=== PATIENT | male | born 1990 | race Caucasian/White ===

== ENCOUNTER 2018-10-01 17:50 | Emergency (ER) | payer SELFPAY ==
--- NOTE | 2018-10-01 17:56 | ED Physician Documentation ---
General Adult - HISTORIAN Historian: patient, paramedics - [facility] Stated Complaint: left knee pain, homeless Chief Complaint: General Adult Additional Information: Patient presents to ED via EMS from [facility] with complaints of left knee pain (chronic) and homelessness. He was picked up by EMS with complaints of dehydration. Patient reports being dropped by his friends at [address] [facility]. Since that time he has been walking around looking for a place to stay. He is from [place] and is homeless. He does not know why he chose to come to [place]. He denies chest pain, shortness of breath, nausea or vomiting. He denies any medical history except for the left knee pain. He does not take any meds. Onset: other (chronic left knee pain) Timing: pain intermittent Severity: mild - ROS CONST: no problems EYES/ENT: none CVS/RESP: none GI/: none MS/SKIN/LYMPH: none NEURO/PSYCH: denies: headache - PAST HX Past History: none Other History: none Surgeries/Procedures: none Allergies/Adverse Reactions: Allergies Allergy/AdvReac Type Severity Reaction Status Date / Time codeine Allergy Verified 10/01/18 19:12 Penicillins Allergy Verified 10/01/18 19:12 Home Medications: Ambulatory Orders Medication Instructions Recorded NK 10/01/18 - SOCIAL HX Smoking History: cigarettes, greater than 1 pack/day Alcohol Use: none Drug Use: none - FAMILY HX Family History: No - REVIEWED ASSESSMENTS Nursing Assessment Reviewed: Yes Vitals Reviewed: Yes Progress - Progress Progress: 1844 Patient requesting tylenol for his left knee pain. General Adult Physical Exam - PHYSICAL EXAM GENERAL APPEARANCE: no distress EENT: JESSICA NECK: normal inspection, supple RESPIRATORY: no resp distress, chest non-tender, breath sounds normal CVS: reg rate & rhythm, heart sounds normal ABDOMEN: soft, normal bowel sounds, non-tender BACK: normal inspection SKIN: warm/dry EXTREMITIES: non-tender, normal range of motion, no evidence of injury NEURO: oriented X3, mood/affect nml Discharge Clincal Impression: Dehydration, Homelessness Referrals: Primary Doctor,No [Primary Care Provider] - 2 Days Additional Instructions: 1. Drink plenty of fluids to maintain proper hydration 2. Go to the [facility] they have a couch available for tonight 3. Return to an ER for new or worsening symptoms Condition: Stable Disposition: 01 HOME, SELF-CARE Decision to Admit: NO Date of Decison to Admit: 10/01/18 Decision Time: 19:18
[2018-10-01] MEDS ORDERED: 0.9 % SODIUM CHLORIDE 1,000 ML IV ONE (18:34)
[2018-10-01] MEDS ORDERED: ACETAMINOPHEN 325 MG TABLET PO ONE (18:45)
[2018-10-01 19:46] VITALS: BP 129/77
== END 2018-10-01 19:30 | disposition home or self-care (01) ==
LOC: ED 17:50
DX: E86.0 Dehydration (principal); Z59.0 Homelessness
CPT/HCPCS: 96360; 99284; J7030

== ENCOUNTER 2018-11-04 10:37 | Emergency (ER) | payer SELFPAY ==
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
[2018-11-04] MEDS: KETOROLAC TROMETHAMINE 60 MG/2 ML VIAL IM ONE (11:33)
[2018-11-04 11:49] VITALS: BP 132/78
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
== END 2018-11-04 11:49 | disposition home or self-care (01) ==
LOC: ED 10:37
DX: M79.641 Pain in right hand (principal); V28.9XXA Unspecified motorcycle rider injured in noncollision transport accident in traffic accident, initial encounter
CPT/HCPCS: 73110; 73130; 96372; 99282; 99284; J1885

== ENCOUNTER 2018-11-08 17:41 | Emergency (ER) | payer SELFPAY ==
--- NOTE | 2018-11-08 17:48 | ED Physician Documentation ---
Headache - HISTORIAN Historian: patient - HPI Chief Complaint: Headache Additional Information: Patient is a 28-year old male who presents to the ER via [facility] with c/o headache- ambulated in (girlfriend arrived minutes before patient with same complaints). Patient in room playing on phone upon my arrival; no acute distress; states he developed a headache this morning- has taken Tylenol and Ibuprofen with no relief; had some nausea and an episode of vomiting. He is pink warm dry. (patient lives at the [facility]) Onset: hours Timing: gradual, still present New Gradual Onset: Yes Exposure To: none Severity: mild Quality: pounding Associated Symptoms: nausea, vomiting (x1). denies: problems with vision, sensitivity to light Preceding Symptoms: denies: visual disturbance, typical of prior aura(s) Exacerbated By: denies: light, noise - ROS NEURO/PSYCH: denies: confusion EYES/ENT: denies: sore throat CVS/RESP: none GI/: denies: abdominal pain MS/SKIN/LYMPH: denies: back pain - PAST HX Medical History: no pertinent history Surgical History: no surgical history Immunizations: UTD Allergies/Adverse Reactions: Allergies Allergy/AdvReac Type Severity Reaction Status Date / Time codeine Allergy Verified 11/04/18 10:46 Penicillins Allergy Verified 11/04/18 10:46 Home Medications: Ambulatory Orders Medication Instructions Recorded Ondansetron HCl Rapdis [Zofran Odt] 4 mg PO Q8 PRN #6 tab 11/08/18 - SOCIAL HX Smoking History: less than 1 pack/day Alcohol Use: none Drug Use: none - Family HX Family History: none - VITAL SIGNS Vital Signs: Vital Signs Temp Pulse Resp BP Pulse Ox 98.1 F 80 14 132/85 96 11/08/18 17:41 11/08/18 18:24 11/08/18 18:24 11/08/18 18:24 11/08/18 18:24 - REVIEWED ASSESSMENTS Nursing Assessment Reviewed: Yes Vitals Reviewed: Yes ED Results Lab/Radiology - Orders Orders: ED Orders Category Date Time Status Ketorolac Tromethamine [Toradol] Med 11/08/18 17:44 Discontinued 60 mg IM NOW ONE Headache Physical Exam - EXAM General Appearance: no acute distress, alert EENT: no facial swelling, eyes nml inspection, PERRL Neck: normal inspection, supple Respiratory: breath sounds normal CVS: heart sounds nml Skin: color nml Extremitites: normal range of motion - NEURO/PSYCH Higher Functions: alert, oriented x3, nml speech, mood/affect nml Cranial: nml as tested, no evidence of acute CVA Cerebellar: nml as tested, nml gait Sensorimotor: motor nml, sensation nml Discharge Clincal Impression: Headache Prescriptions: Ondansetron HCl Rapdis [Zofran Odt] 4 mg PO Q8 PRN #6 tab PRN Reason: Nausea / Vomiting Referrals: Primary Doctor,No [Primary Care Provider] - 2 Days Additional Instructions: Home and rest Alternate Ibuprofen and Tylenol as needed for headache Take Zofran 4 mg by mouth every 6 hours as needed for nausea Follow up with PCP next week Condition: Good Disposition: 01 HOME, SELF-CARE Decision to Admit: NO Decision Time: 20:16
[2018-11-08] MEDS: KETOROLAC TROMETHAMINE 60 MG/2 ML VIAL IM ONE (17:56)
[2018-11-08 18:28] VITALS: BP 132/85
== END 2018-11-08 18:22 | disposition home or self-care (01) ==
LOC: ED 17:41
DX: R51 Headache (principal)
CPT/HCPCS: 96372; 99283; 99284; J1885